=== PATIENT | female | born 1945 | race American Indian/Alaskan Native ===

== ENCOUNTER 2021-03-23 14:00 | Emergency (ER) | payer MEDICARE, OTHER ==
[2021-03-23 14:27] VITALS: RESP 18; TEMP 98.9
--- NOTE | 2021-03-23 14:53 | ED ---
General Adult HPI - General Chief complaint: Upper Respiratory Infection Stated complaint: Covid Symptoms Time Seen by Provider: 03/23/21 14:32 Source: patient Mode of arrival: ambulatory Limitations: no limitations - History of Present Illness Initial comments: Dictation was produced using [employer] dictation software. please excuse any grammatical, word or spelling errors. Chief Complaint: 75-year-old female presents to the emergency Department for cold symptoms 3 days. History of Present Illness: Patient is a 75-year-old female presents emergency department for myalgias nasal congestion and slight cough. Patient is accompanied by and granddaughter who serves as fish egg packer. Patient otherwise has been feeling fine. Patient's son is one of our oncologist. They're requesting monoclonal antibodies a STEMI criteria for it. No obvious 6 exposures but they do meet with her friends frequently over tea and coffee. The ROS documented in this emergency department record has been reviewed and confirmed by me. Those systems with pertinent positive or negative responses have been documented in the HPI. All other systems are other negative and/or noncontributory. PHYSICAL EXAM: General Impression: Alert and oriented x3, not in acute distress HEENT: Normocephalic atraumatic, extra-ocular movements intact, pupils equal and reactive to light bilaterally, mucous membranes moist. Cardiovascular: Heart regular rate and rhythm Chest: Able to complete full sentences, no retractions, no tachypnea Abdomen: abdomen soft, non-tender, non-distended, no organomegaly Musculoskeletal: Pulses present and equal in all extremities, no peripheral edema Motor: no focal deficits noted Neurological: CN II-XII grossly intact, no focal motor or sensory deficits noted Skin: Intact with no visualized rashes Psych: Normal affect and mood ED course: 75-year-old female with covered symptoms for the last 3 days. Vital Signs upon arrival are within acceptable limits. Patient is 96% on room air. She is not showing some signs of respiratory distress at the bedside. Patient positive for COVID-19. Patient given monoclonal antibodies. Observed the emergency department for one hour and discharged in stable medical condition. - Related Data Allergies Allergy/AdvReac Type Severity Reaction Status Date / Time ketamine [From [facility]] Allergy Unknown Verified 03/23/21 14:27 propofol Allergy Unknown Verified 03/23/21 14:29 Review of Systems ROS Statement: Those systems with pertinent positive or pertinent negative responses have been documented in the HPI. ROS Other: All systems not noted in ROS Statement are negative. Past Medical History Past Medical History: Diabetes Mellitus, Hyperlipidemia History of Any Multi-Drug Resistant Organisms: None Reported Past Surgical History: No Surgical Hx Reported Past Psychological History: No Psychological Hx Reported Smoking Status: Former smoker Past Alcohol Use History: None Reported Past Drug Use History: None Reported General Exam Limitations: no limitations Course Vital Signs 03/23/21 03/23/21 14:23 17:09 Temperature 98.9 F Pulse Rate 84 63 Respiratory 18 18 Rate Blood Pressure 111/68 101/53 O2 Sat by Pulse 96 96 Oximetry Medical Decision Making - Lab Data Lab Results 03/23/21 Range/Units 14:54 Coronavirus (PCR) Detected A (Not Detectd) Disposition Clinical Impression: COVID-19 Disposition: HOME SELF-CARE Condition: Good Instructions (If sedation given, give patient instructions): Coronavirus Disease 2019 (COVID-19), Upper Respiratory Infection (ED) Is patient prescribed a controlled substance at d/c from ED?: No Referrals: Reji Ribera MD [Primary Care Provider] - 1-2 days
[2021-03-23] MEDS: BAMLANIVIMAB (EUA) 700 MG, ETESEVIMAB (EUA) 1,400 MG in SODIUM CHLORIDE 0.9% 100 ML IVPB ONE (16:03)
[2021-03-23] MEDS: SODIUM CHLORIDE 0.9% 50 ML IVPB ONE (16:05)
[2021-03-23 17:10] VITALS: BP 101/53; PULSE 63
== END 2021-03-23 17:10 | disposition home or self-care (01) ==
LOC: EC 14:00
DX: U07.1 COVID-19 (principal); E11.9 Type 2 diabetes mellitus without complications; Z88.4 Allergy status to anesthetic agent
CPT/HCPCS: 87635; 99283; J3490